=== PATIENT | female | born 1985 | race Caucasian/White ===

== ENCOUNTER 2020-01-03 23:17 | Emergency (ER) | payer OTHER, MEDICAID ==
[~2020-01-03] VITALS: Ht 160 cm; Wt 113.4 kg
[2020-01-03] MEDS ORDERED: LISINOPRIL10 MG PO (23:28)
[2020-01-04] LABS: HEMATOCRIT 43.9 % (37.0-47.0); HEMOGLOBIN 15.2 gm/dL (12.0-15.0); MCH 29.5 pg (26.0-34.0); MCHC 34.7 g/dL (28.0-37.0); MCV 85.2 fL (80.0-100.0); MPV 6.7 fl. (7.2-11.1); RBC 5.15 mil/uL (4.20-5.00); RDW-CV 14.7 % (10.5-14.5); WBC 9.8 thou/uL (4.0-11.0)
[2020-01-04 00:11] LABS: CALCIUM 9.1 mg/dL (8.5-10.1); CREATININE 0.9 mg/dL (0.6-1.3); POTASSIUM 3.4 mmol/L (3.5-5.1)
[2020-01-04] MEDS ORDERED: LISINOPRIL10 MG PO (00:52)
[2020-01-04 01:05] VITALS: BP 169/99
--- NOTE | 2020-01-04 09:26 | EKG ---
[place] [address] ELECTROCARDIOGRAM REPORT Name: CHARLOTTE GARCIA Suzan Room: [facility]#: [id number] Admission: 01/03/20 Attend Phys: Discharge: 01/04/20 Date of : 83 Date of Service: 01/03/20 2348 Report #: [id number] THIS REPORT FOR: //name// [facility] ED Test Date: 2020-01-03 Test Time: 23:48:01 Pat Name: CHARLOTTE GARCIA Department: Room: Gender: F Cylinder Dyer: JESSI : 1985 Requested By: Ramona Pastor Order Number: [id number] MD: Vahe Salguero Measurements Intervals Wren Rate: 78 P: 42 MA: 189 QRS: 38 QRSD: 94 T: -10 QT: 369 QTc: 421 Interpretive Statements Sinus rhythm Borderline T abnormalities, inferior leads No previous ECG available for comparison Electronically Signed On 01-04-2020 9:26:46 [employer] by Vahe Salguero [email or web address] <ELECTRONICALLY SIGNED> By: Vahe Salguero MD, [facility] 01/04/20 0926 2348 2348 Vahe Salguero MD, [facility] /EPI
== END 2020-01-04 01:06 | disposition home or self-care (01) ==
LOC: M.ERS 23:17
PROVIDERS: Personal Emergency Response Attendant
DX: I10 Essential (primary) hypertension (principal); Z76.0 Encounter for issue of repeat prescription; Z90.711 Acquired absence of uterus with remaining cervical stump; Z90.89 Acquired absence of other organs; Z79.899 Other long term (current) drug therapy